=== PATIENT | female | born 1960 | race Caucasian/White ===

== ENCOUNTER 2022-04-20 08:15 | Outpatient (CLI) | payer OTHER, SELFPAY ==
[2022-04-20 09:51] LABS: Chloride* 105 mmol/L (96-114)
[2022-04-20 09:52] LABS: Albumin* 4.1 g/dL (3.3-5.0); Potassium* 4.2 mmol/L (3.6-5.1); Sodium* 140 mmol/L (135-149)
[2022-04-20 09:54] LABS: Carbon Dioxide* 28 mmol/L (20-32); Creatinine* 1.6 mg/dL (0.5-1.5); Estimated Glomerular Filt Rate 37 ml/min
[2022-04-20 09:55] LABS: Blood Urea Nitrogen* 16 mg/dL (7-30); Calcium* 9.6 mg/dL (8.4-10.6); Glucose* 160 mg/dL (60-115); Magnesium* 1.4 mg/dL (1.5-2.6); Phosphorus* 4.1 mg/dL (2.5-4.5)
[2022-04-20 10:16] LABS: Creatinine Urine 66.3 mg/dL
[2022-04-20 11:52] LABS: Microalbumin Creatinine Ratio 4220 mg/g (0-30); Microalbumin Urine 280 mg/dL
== END 2022-04-20 08:16 | disposition home or self-care (01) ==
PROVIDERS: Internal Medicine Nephrology; PCP Internal Medicine; Visit Provider Internal Medicine
DX: E11.9 Type 2 diabetes mellitus without complications (principal); I10 Essential (primary) hypertension; N18.30 Chronic kidney disease, stage 3 unspecified
CPT/HCPCS: 80069; 82043; 82570; 83735; 87086

== ENCOUNTER 2022-06-15 11:36 | Outpatient (CLI) | payer OTHER, SELFPAY ==
--- NOTE | 2022-06-15 11:30 | CRLHL7_ITS ---
For Patients: As a result of the Cures Act, medical imaging exams and procedure reports are released immediately into your electronic medical record. You may view this report before your referring provider. If you have questions, please contact your health care provider. BILATERAL SCREENING MAMMOGRAM WITH COMPUTER-AIDED DETECTION AND TOMOSYNTHESIS TECHNIQUE: CC and MLO views were obtained. These mammographic images have been obtained using full-field digital technique. These mammographic images were interpreted with the benefit of computer-aided detection. Breast Tomosynthesis was used in this interpretation. COMPARISON FILM: 05/21/21, 04/21/20, 03/15/19. FINDINGS: There are scattered areas of fibroglandular density IMPRESSION: There is no radiographic evidence for malignancy. ASSESSMENT: BI-RADS Category 1: Negative RECOMMENDATION: Routine screening mammogram in 1 year. A lay language report of this examination will be provided to the patient. Seb Guy M.D. Diagnostic Radiologist [email or web address] JOSUÉ/irish / be/Dictated by: Seb Guy MD @ 06/16/2022 11:41:00 AM (Electronically Signed)
== END 2022-06-15 11:37 | disposition home or self-care (01) ==
LOC: MAMMO 11:37
PROVIDERS: PCP Internal Medicine; Visit Provider Internal Medicine
DX: Z12.31 Encounter for screening mammogram for malignant neoplasm of breast (principal)
CPT/HCPCS: 77063; 77067

== ENCOUNTER 2022-07-06 09:09 | Outpatient (CLI) | payer OTHER, SELFPAY ==
[2022-07-06 13:50] LABS: Magnesium* 1.6 mg/dL (1.5-2.6)
== END 2022-07-06 09:10 | disposition home or self-care (01) ==
LOC: NFLDREF 10:55
PROVIDERS: PCP Internal Medicine; Visit Provider Internal Medicine
DX: E83.42 Hypomagnesemia (principal)
CPT/HCPCS: 83735

== ENCOUNTER 2022-11-01 08:16 | Outpatient (CLI) | payer OTHER, SELFPAY ==
[2022-11-01 09:31] LABS: Albumin* 4.3 g/dL (3.3-5.0); Chloride* 105 mmol/L (96-114); Sodium* 139 mmol/L (135-149)
[2022-11-01 09:32] LABS: Potassium* 5.1 mmol/L (3.6-5.1)
[2022-11-01 09:33] LABS: Cholesterol* 161 mg/dL (90-199); Creatinine* 1.7 mg/dL (0.5-1.5); Estimated Glomerular Filt Rate 34 ml/min
[2022-11-01 09:34] LABS: Alanine Aminotransferase* 65 U/L (4-35); Alkaline Phosphatase* 73 U/L (40-150); Aspartate Amino Transferase* 56 U/L (12-35); Bilirubin Total* 0.5 mg/dL (0.1-1.5); Blood Urea Nitrogen* 19 mg/dL (7-30); Calcium* 10.1 mg/dL (8.4-10.6); Carbon Dioxide* 24 mmol/L (20-32); Glucose* 178 mg/dL (60-115); Total Protein* 7.1 g/dL (6.0-8.3)
[2022-11-01 09:35] LABS: HDL Cholesterol* 46 mg/dL (>=50); LDL Cholesterol Calculated 24 mg/dL (<100); Magnesium* 1.4 mg/dL (1.5-2.6)
[2022-11-01 09:36] LABS: Triglycerides* 453 mg/dL (40-149)
[2022-11-01 11:07] LABS: Creatinine Urine 72.6 mg/dL; Microalbumin Creatinine Ratio 4880 mg/g (0-30)
[2022-11-01 11:08] LABS: Microalbumin Urine 355 mg/dL
== END 2022-11-01 08:17 | disposition home or self-care (01) ==
PROVIDERS: PCP Internal Medicine; Visit Provider Internal Medicine
DX: E11.9 Type 2 diabetes mellitus without complications (principal); E78.5 Hyperlipidemia, unspecified; I10 Essential (primary) hypertension; N18.30 Chronic kidney disease, stage 3 unspecified; F41.9 Anxiety disorder, unspecified; E83.42 Hypomagnesemia
CPT/HCPCS: 80053; 80061; 82043; 82570; 83735

== ENCOUNTER 2023-05-02 11:15 | Outpatient (CLI) | payer OTHER, SELFPAY | END 2023-05-02 11:16 | disposition home or self-care (01) | LOC: NFLDREF 05-04 10:22 | PROVIDERS: PCP Internal Medicine; Referring Provider Internal Medicine; Visit Provider Internal Medicine | DX: E11.9 Type 2 diabetes mellitus without complications (principal); I10 Essential (primary) hypertension; E78.5 Hyperlipidemia, unspecified; N18.30 Chronic kidney disease, stage 3 unspecified | CPT/HCPCS: 80053; 80061; 82043; 82570; 83735 ==

== ENCOUNTER 2023-07-04 09:32 | Outpatient (CLI) | payer OTHER, SELFPAY ==
--- NOTE | 2023-07-04 10:15 | CRLHL7_ITS ---
For Patients: As a result of the Cures Act, medical imaging exams and procedure reports are released immediately into your electronic medical record. You may view this report before your referring provider. If you have questions, please contact your health care provider. BILATERAL SCREENING MAMMOGRAM WITH COMPUTER-AIDED DETECTION AND TOMOSYNTHESIS TECHNIQUE: CC and MLO views were obtained. These mammographic images have been obtained using full-field digital technique. These mammographic images were interpreted with the benefit of computer-aided detection. Breast tomosynthesis was used in this interpretation. COMPARISON FILM: 06/15/22, 05/21/22, 04/21/20. FINDINGS: There are scattered areas of fibroglandular density. IMPRESSION: There is no radiographic evidence for malignancy. ASSESSMENT: BI-RADS Category 1: Negative RECOMMENDATION: Routine screening mammogram in 1 year. A lay language report of this examination will be provided to the patient. SEB SINGH M.D. Diagnostic Radiologist [email or web address] JOSUÉ/mary Transcribed: 07/04/2023, 3:[address]/Dictated by: Seb Singh MD @ 07/04/2023 11:30:00 AM (Electronically Signed)
== END 2023-07-04 09:33 | disposition home or self-care (01) ==
LOC: MAMMO 09:33
PROVIDERS: PCP Internal Medicine; Visit Provider Internal Medicine
DX: Z12.31 Encounter for screening mammogram for malignant neoplasm of breast (principal)
CPT/HCPCS: 77063; 77067

== ENCOUNTER 2023-12-27 08:36 | Outpatient (CLI) | payer OTHER, SELFPAY ==
--- OUTSIDE RECORDS SUMMARY | 2023-12-28 10:24 | XMS_ITS | Clinical Summary ---
Author Name Unknown Organization [employer] [facility] Address [place], [place] [address] Care Team Providers Care Director Of Online Education Name Role Phone Sierra Castano MD Primary Care Provider [phone] Allergies Active Allergy Reactions Criticality Noted Date Comments Gadodiamide Hives 11/04/2016 Diatrizoate Allergen Hives 06/23/2016 Medications Medication Sig Dispensed Refills Start Date End Date Status esomeprazole (NEXIUM) 40 mg capsule Take 1 capsule by mouth once daily before a meal. 0 06/23/2016 Active FLUoxetine (SARAFEM) 20 mg tablet Take 1 tablet by mouth every morning. 0 06/23/2016 Active traZODone (DESYREL) 100 mg tablet Take 1 tablet by mouth at bedtime. 0 06/23/2016 Active losartan (COZAAR) 25 mg tablet Take 1 tablet by mouth once daily. 0 06/23/2016 Active atenolol (TENORMIN) 25 mg tablet Take 1 tablet by mouth once daily. 0 06/23/2016 Active magnesium oxide (MAG-OX 400) 400 mg tablet Take 400 mg by mouth once daily. Active atorvastatin (LIPITOR) 40 mg tablet Take 40 mg by mouth at bedtime. Active traMADol (ULTRAM) 50 mg tablet Take 50 mg by mouth once daily if needed for Pain. Active multivitamin-mineral s therapeutic tablet Take 1 tablet by mouth once daily. Active acetaminophen (TYLENOL) 325 mg tabletIndications:Pr imary osteoarthritis of right knee Take 1-2 tablets by mouth every 6 hours if needed. Max acetaminophen dose: 4000mg in 24 hrs. 100 tablet 11/09/2016 Active aspirin enteric coated (ECOTRIN) 325 mg tabletIndications:Pr imary osteoarthritis of right knee Take 1 tablet by mouth 2 times daily with meals for 30 days to prevent a clot in your legs 60 tablet 1 11/09/2016 Active sennosides-docusate, 8.6-50 mg, (SENOKOT S) 8.6-50 mg tabletIndications:Pr imary osteoarthritis of right knee Take 1 tablet by mouth 2 times daily if needed for Constipation (Hold for loose stools). 100 tablet 11/09/2016 Active WalkerIndications:Pr imary osteoarthritis of right knee 2 Wheeled Walker for home use. For 6 weeks. 1 Device 11/09/2016 Active oxyCODONE (ROXICODONE) 5 mg immediate release tabletIndications:Pr imary osteoarthritis of right knee Take 1-2 tablets by mouth every 4 hours. 60 tablet 11/10/2016 Active Active Problems Problem Noted Date Diagnosed Date s/p right total knee arthroplasty 11/08/16 017 YVETTE (obstructive sleep apnea) 11/08/2016 Chronic kidney disease, stage III (moderate) 02/2017 Primary osteoarthritis of right knee 06/23/2016 GERD (gastroesophageal reflux disease) Hyperlipidemia Current smoker PVC's (premature ventricular contractions) Overview: atenolol HTN (hypertension) Family History Medical History Relation Name Comments Cancer-prostate Brother Heart Disease Father Heart Disease Mother Lung cancer Sister Relation Name Status Comments Brother Father Mother Sister Social History Tobacco Use Types Packs/Day Years Used Date Smoking Tobacco: Former Cigarettes Q uit: 10/25/2016 Smokeless Tobacco: Never Alcohol Use Standard Drinks/Week Comments No 0 (1 standard drink = 0.6 oz pur e alcohol) Sex and Gender Information Value Date Recorded Sex Assigned at Not on file Gender Identity Not on file Sexual Orientation Not on file Obstetrics History Last Filed Vital Signs Vital Sign Reading Time Taken Comments Blood Pressure 146/77 11/10/2016 8:23 AM SOLDERING MACHINE OPERATOR AUTOMATIC Pulse 61 11/10/2016 8:23 AM SOLDERING MACHINE OPERATOR AUTOMATIC Temperature 37.1 ??C (98.7 ??F) 11/10/2016 12:[address] Respiratory Rate 16 11/10/2016 8:23 AM SOLDERING MACHINE OPERATOR AUTOMATIC Oxygen Saturation 96% 11/10/2016 8:23 AM SOLDERING MACHINE OPERATOR AUTOMATIC Inhaled Oxygen Concentration - - Weight 89.5 kg (197 lb 6.4 oz) 11/08/2016 5:48 A M SOLDERING MACHINE OPERATOR AUTOMATIC Height 162.6 cm (5' 4) 11/08/2016 5:48 AM SOLDERING MACHINE OPERATOR AUTOMATIC Body Mass Index 33.88 11/08/2016 5:48 AM SOLDERING MACHINE OPERATOR AUTOMATIC Plan of Treatment Health Maintenance Due Date Last Done Comments Tdap 1973 Depression screening for age 12+ 1974 HIV for age 15-65 1977 Hepatitis C screening for age 18-79 1980 Tetanus booster 1982 Colonoscopy through age 75 2007 Lipids for age 45-75 2007 Mammogram for age 45-75 2007 Zoster (shingles) series for age 50+ (1 of 2) 2012 BMI (ht and wt on same day) for age 18+ 09/09/2017 09/09/2016, 06/23/2016 COVID-19 vaccine series (2022- season) 2023 Influenza for age 50-64 05/06/2024 Pap test for age 21-65 09/28/2025 , 09/28/2022, 08/27/2021, Additional history exists Pneumococcal series for age 6-64 Aged Out No longer eligible based on patient's age to complete this topic Medical Devices Implanted Type Area Digital Designer Device Identifier Shelf Expiration Date Model / Serial / Lot Patella Sz32 Irma Ii Rnd Penon Pors - [id number] Implanted:Qty: 1 on 11/08/2016 by Niko Ramires MD at [facility] Ortho Total Joint Right: Knee [employer] 06/06/2026 [id number] / / [id number] Cmnt Bone Simplex Atb Tobramycin - [id number] Implanted:Qty: 1 on 11/08/2016 by Niko Ramires MD at [facility] Right: Knee [employer] 04/04/2018 [id number] # / / [id number] Cmnt Bone Simplex Atb Tobramycin - [id number] Implanted:Qty: 1 on 11/08/2016 by Niko Ramires MD at [facility] Right: Knee [employer] 03/04/2018 [id number] # / / [id number] Fem Rt Sz4 [employer] St[employer] Oxin - [id number] Implanted:Qty: 1 on 11/08/2016 by Niko Ramires MD at [facility] Right: Knee [employer] 03/02/2025 [id number] / / [id number] Baseplate Tib Rt Sz2 Irma Ii Titnm Non Pors - [id number] Implanted:Qty: 1 on 11/08/2016 by Niko Ramires MD at [facility] Right: Knee [employer] 09/12/2026 [id number] / / [id number] Insert Knee Sz1-2 12mm [employer] St[employer] High Flex Xlpe - [id number] Implanted:Qty: 1 on 11/08/2016 by Niko Ramires MD at [facility] Right: Knee [employer] 04/25/2026 [id number]# / / [id number] Explanted Type Area Digital Designer Device Identifier Shelf Expiration Date Model / Serial / Lot Guide Cutg Rt Legion Fem Tib - [id number] Explanted:Qty: 1 on 11/08/2016 by Niko Ramires MD at [facility] Right: Knee [employer] 01/23/2017 [id number] / / [id number] Procedures Procedure Name Priority Date/Time Associated Diagnosis Comments HPV THIN PREP Routine 09/28/2022 12:00 PM SOLDERING MACHINE OPERATOR AUTOMATIC from Last 3 Months or Most Recently Relevant to Health Maintenance Results * HPV HIGH RISK (09/28/2022 12:00 PM SOLDERING MACHINE OPERATOR AUTOMATIC) TYPE 16 Negative Negative 10/01/2022 10:51 AM SOLDERING MACHINE OPERATOR AUTOMATIC [facility] TYPE 18 Negative Negative 10/01/2022 10:51 AM SOLDERING MACHINE OPERATOR AUTOMATIC [facility] OTHER HIGH RISK TYPES Negative Negative 10/01/2022 10:51 AM [facility] Other (Cervical/Vagina l) 09/28/2022 12:00 PM SOLDERING MACHINE OPERATOR AUTOMATIC 09/29/2022 1:49 PM SOLDERING MACHINE OPERATOR AUTOMATIC [facility] - 10/01/2022 10:51 AM SOLDERING MACHINE OPERATOR AUTOMATIC HPV types 16, 18, 31, 33, 35, 39, 45, 51, 52, 56, 58, 59, 66 and 68 DNA were undetectable or below the pre-set threshold. Methodology: Stylewhileas 4800 HPV Test Jenifer Meggan Hernberg MD MICROBIOLOGY [facility] [address] [place] [address], from Last 3 Months or Most Recently Relevant to Health Maintenance Advance Directives * Full Code (Latest Code Status on File) Date Activated Date Inactivated Comments 11/08/2016 8:57 AM 11/10/2016 12:59 PM * Full Code Date Activated Date Inactivated Comments 11/08/2016 2:01 AM 11/08/2016 8:57 AM Care Teams Director Of Online Education Relationship Specialty Start Date End Date Sierra Castano MD [address] [place] [address] PCP - General Internal Medicine 06/17/16
== END 2023-12-27 08:37 | disposition home or self-care (01) ==
LOC: NFLDREF 12-28 10:22
PROVIDERS: PCP Internal Medicine; Referring Provider Internal Medicine; Visit Provider Internal Medicine
DX: E11.9 Type 2 diabetes mellitus without complications (principal); E78.5 Hyperlipidemia, unspecified; I10 Essential (primary) hypertension; Z79.84 Long term (current) use of oral hypoglycemic drugs
CPT/HCPCS: 80053; 80061

== ENCOUNTER 2024-05-15 08:18 | Outpatient (CLI) | payer OTHER, SELFPAY | END 2024-05-15 08:19 | disposition home or self-care (01) | LOC: NFLDREF 15:48 | PROVIDERS: PCP Internal Medicine; Referring Provider Internal Medicine; Visit Provider Internal Medicine Nephrology | DX: R74.8 Abnormal levels of other serum enzymes (principal); I12.9 Hypertensive chronic kidney disease with stage 1 through stage 4 chronic kidney disease, or unspecified chronic kidney disease; N18.30 Chronic kidney disease, stage 3 unspecified; E78.5 Hyperlipidemia, unspecified; E83.42 Hypomagnesemia | CPT/HCPCS: 80069; 82043; 82570; 83540; 83550; 84550 ==

== ENCOUNTER 2024-07-05 07:47 | Outpatient (CLI) | payer OTHER, SELFPAY ==
--- OUTSIDE RECORDS SUMMARY | 2024-07-05 08:19 | XMS_ITS ---
Author Organization [facility] Address [address] [place] [address] Care Team Providers Care Column Precaster Name Role Phone Unavailable Unavailable Unavailable Surgery Details Not on file Complications Check Surgery Details section. Procedure Estimated Blood Loss Check Surgery Details section. Procedure Findings Check Surgery Details section. Procedure Specimens Taken Check Surgery Details section.
--- OUTSIDE RECORDS SUMMARY | 2024-07-05 08:19 | XMS_ITS | Encounter Summary ---
Author Organization [facility] Address [address] [place] [id number] Care Team Providers Care Vice President Of Development Name Role Phone Unavailable Primary Care Provider Unavailabl e Reason for Visit * Appointment Request (Routine) - Closed Specialty Diagnoses / Procedures Referred By Geovanny encarnacion Referred To Contact Nephrology and Hypertension Referral ID Status Reason Start Date Expiration Date Visits Re quested Visits Authorized [id number] Closed 04/26/2024 04/26/2025 1 1 Encounter Details Date Type Department Care Team (Latest Contact Info) Description 05/21/2024 2:30 PM CDT External Outreach Division of Nephrology and Hypertension in [place], [place] [address] [place] [phone] Fred Muñoz Jr., D.O. [address] [place] [phone] Chronic Kidney Disease (CKD), Stage 3a Glomerular Filtration Rate (GFR) 45 To 59 (HCC) (Primary Dx); Hypertensive Chronic Kidney Disease With Stage 1 Through Stage 4 Chronic Kidney Disease, Or Unspecified Chronic Kidney Disease; Diabetes Mellitus Type 2 (HCC) Social History Tobacco Use Types Packs/Day Years Used Date Smoking Tobacco: Never Assessed Nutrition Answer Date Recorded Nutrition: EVOO Fat Source 13 05/20 Nutrition: Servings of Fruits/Vegetables per Day Not on file 05/20/2020 Dental Answer Date Recorded Dental: Regular Dentist Unknown 08/27/20 21 Comments Unknown Sex and Gender Information Value Date Recorded Sex Assigned at Not on file Legal Sex Female 11:58 AM GATE SHEAR OPERATOR Gender Identity Not on file Sexual Orientation Not on file documented as of this encounter Last Filed Vital Signs Vital Sign Reading Time Taken Comments Blood Pressure 128/82 05/21/2024 3:14 PM CDT Pulse 66 05/21/2024 3:14 PM CDT Temperature - - Respiratory Rate - - Oxygen Saturation - - Inhaled Oxygen Concentration - - Weight 76.7 kg (169 lb) 05/21/2024 3:14 PM CDT Height 165.1 cm (5' 5) 05/21/2024 3:14 PM CDT Body Mass Index 28.12 05/21/2024 3:14 PM CDT documented in this encounter Progress Notes * Fred Muñoz Jr., D.O. - 05/21/2024 2:30 PM CDT Referring Provider:DR Armstrong SUBJECTIVE REASON FOR VISIT [facility] Follow-up regards CKD HISTORY OF PRESENT ILLNESS Ms. Lyon is a 64 y.o. female who presents with CKD on the background of hypertension diabetes mellitus. She has done a terrific job with weight loss, and has been initiated on Ozempic as well as following through with empagliflozin. Her hemoglobin A1c is still slightly above target at 7.9%, but overallshe is doing well feeling well and exercising on a regular basis. She has been free of orthopedic issues recently other than some left hip pain which she notes when she exercises on the treadmill. She is experiencing some orthostatic changes when she stands, and I note that she is on 2.5 mg of amlodipine which we will stop. She has additionally troubled by tachycardia episodes. These are quite troublesome, primarily so inthe evenings when she is lying on her left side. She is wearing a mobile monitoring device currently. She has had no syncope, no chest pain, no shortness of breath and no other constitutional complaints. Overall she is doing quite well. 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 No past medical history on file. Current Outpatient Medications: atenoloL (Tenormin) 25 mg tablet, Take 2 tablets by mouth 2 (two) times a day Indications: high blood pressure., Disp: , Rfl: esomeprazole (NexIUM) [address] capsule, Take 1 capsule by mouth daily., Disp: , Rfl: FLUoxetine (PROzac) 20 mg tablet, Take 1 tablet by mouth every morning., Disp: , Rfl: losartan (Cozaar) 25 mg tablet, Take 1 tablet by mouth 2 (two) times a day., Disp: , Rfl: atorvastatin (Lipitor) 40 mg tablet, Take 40 mg by mouth at bedtime., Disp: , Rfl: empagliflozin (Jardiance) 10 mg tablet, Take 1 tablet (10 mg total) by mouth daily before morning meal., Disp: , Rfl: metFORMIN (Fortamet) 1,000 mg 24 hr tablet, Take 1 tablet (1,000 mg total) by mouth daily with morning meal., Disp: , Rfl: semaglutide (Ozempic) 1 mg/dose (4 mg/3 mL) injection, Inject 1 mg under the skin every 7 (seven) days., Disp: , Rfl: traMADoL (Ultram) 50 mg tablet, Take 50 mg by mouth at bedtime as needed., Disp: , Rfl: REVIEW OF SYSTEMS All other systems reviewed and are negative. OBJECTIVE BP 128/82 Pulse 66 Ht 165.1 cm Wt 76.7 kg BMI 28.12 kg/m?? PHYSICAL EXAMINATION General: Awake, alert, oriented. HEENT: VANESSA, EOMI, mucous membranes moist, no oral lesions. Neck: No masses, no bruits. Lungs: Clear to auscultation. Heart: Regular rate and rhythm. No ectopy, murmurs, or rubs. Abdomen: Soft, non-tender. Extremities: No cyanosis, no clubbing, no edema. Neuro: Cranial nerves intact. Gait is normal, strength grossly normal. Skin: No suspicious lesions identified. Psychiatric: Normal affect. DIAGNOSTICS Note hemoglobin A1c 7.9%, normal serum creatinine level, normal CBC. ASSESSMENT / PLAN #1 Chronic Kidney Disease (CKD), Stage 3a Glomerular Filtration Rate (GFR) 45 To 59 ([facility]) Doing quite well, her renal function has gratifyingly improved, she does have glycosuria, as expected with her SG LT 2 inhibitor. I congratulated her on weight loss and excellent blood pressure control. Going forward: 1. I will see her back in a year 2. She will continue on her current regimen with the goal glycosylated hemoglobin between 6.5 and 7.5% 3. Goal blood pressures less than 130s systolic, but above 110 systolic. We will stop her amlodipine 4. No NSAIDs or Sanchez 2 inhibitors 5. Stay well hydrated #2 Hypertensive Chronic Kidney Disease With Stage 1 Through Stage 4 Chronic Kidney Disease, Or Unspecified Chronic Kidney Disease Her blood pressures have been achieved in fact she is having some orthostatic changes, and along with her tachycardia it is best if we stop her amlodipine currently. She will continue to avoid sodium, NSAIDs, continue on her enhanced dose of beta blockade. We are watching the results of her mobile nurse monitoring. #3 Diabetes Mellitus Type 2 (HCC) She relates that she could do better with her diet, and we will read devoted herself to her dietaryattention. She is on an extensive regimen including metformin, GLP 1 agonist him, and SG LT 2 antagonism. Total time: 30 minutes Counseling Time: 20 minutes Fred Muñoz Jr., D.O. documented in this encounter Plan of Treatment Not on file documented as of this encounter Visit Diagnoses Diagnosis Chronic Kidney Disease (CKD), Stage 3a Glomerular Filtration Rate (GFR) 45 To 59 (HCC)- Primary Hypertensive Chronic Kidney Disease With Stage 1 Through Stage 4 Chronic Kidney Disease, Or Unspecified Chronic Kidney Disease Diabetes Mellitus Type 2 (HCC) documented in this encounter
--- OUTSIDE RECORDS SUMMARY | 2024-07-05 08:19 | XMS_ITS | Clinical Summary ---
Author Organization [employer] [facility] [employer] [facility] Address [place], [place] [address] Care Team Providers Care Mine Engineering Supervisor Name Role Phone Sierra Castano MD Primary Care Provider [phone] Allergies Active Allergy Reactions Criticality Noted Date [...] Hyperlipidemia Current smoker PVC's (premature ventricular contractions) Overview (11/08/2016): atenolol HTN (hypertension) Encounters Date Type Department Care Team Description 05/15/2024 Orders Only [facility] [address] [place] [address] Sierra Castano MD 1 scan: (1-Ord) ZIO REPORT from Last 3 Months Family History Medical History Relation Name Comments [...] Comments Blood Pressure 146/77 11/10/2016 8:23 AM ALTITUDE CHAMBER TECHNICIAN Pulse 61 11/10/2016 8:23 AM ALTITUDE CHAMBER TECHNICIAN Temperature 37.1 ??C (98.7 ??F) 11/10/2016 12:[address] Respiratory Rate 16 11/10/2016 8:23 AM ALTITUDE CHAMBER TECHNICIAN Oxygen Saturation 96% 11/10/2016 8:23 AM ALTITUDE CHAMBER TECHNICIAN Inhaled Oxygen Concentration - - Weight 89.5 kg (197 lb 6.4 oz) 11/08/2016 5:48 A M ALTITUDE CHAMBER TECHNICIAN Height 162.6 cm (5' 4) 11/08/2016 5:48 AM ALTITUDE CHAMBER TECHNICIAN Body Mass Index 33.88 11/08/2016 5:48 AM ALTITUDE CHAMBER TECHNICIAN Plan of Treatment Health Maintenance Due Date [...] 18+ 09/09/2017 09/09/2016, 06/23/2016 COVID-19 vaccine series (2023- season) 2024 Influenza for age 50-64 05/06/2024 Pap test for age 21-65 09/28/2025 3, 09/28/2022, 08/27/2021, Additional history exists Pneumococcal series for age 6-64 Aged Out No longer eligible based on patient's age to complete this topic Medical Devices Implanted Type Area Foam Rubber Mixer Device Identifier Shelf Expiration Date Model / Serial / Lot Patella Sz32 Irma Ii Rnd [facility] Pors - [id number] Implanted:Qty: 1 on 11/08/2016 by Niko Ramires MD at [facility] Total Joint Right: Knee [employer] 06/06/2026 [id number] / / [id number] Cmnt Bone Simplex Atb Tobramycin - [id number] Implanted:Qty: 1 on 11/08/2016 by Niko Ramires MD at [facility] [place] Right: Knee [employer] 04/04/2018 [id number] # / / [id number] Cmnt Bone Simplex Atb Tobramycin - [id number] Implanted:Qty: 1 on 11/08/2016 by Niko Ramires MD at [facility] [place] Right: Knee [facility] 03/04/2018 [id number] # / / [id number] Fem Rt Sz4 [employer] Oxin - [id number] Implanted:Qty: 1 on 11/08/2016 by Niko Ramires MD at [facility] [place] Right: Knee [employer] 03/02/2025 [id number] / / [id number] Baseplate Tib Rt Sz2 Irma Ii Titnm Non Pors - [id number] Implanted:Qty: 1 on 11/08/2016 by Niko Ramires MD at [facility] [place] Right: Knee [employer] 09/12/2026 [id number]# / / [id number] Insert Knee Sz1-2 12mm [employer] High Flex Xlpe - [id number] Implanted:Qty: 1 on 11/08/2016 by Niko Ramires MD at [facility] [place] Right: Knee [employer] 04/25/2026 [id number]# / / [id number] Explanted Type Area Foam Rubber Mixer Device Identifier Shelf Expiration Date Model / Serial / Lot Guide Cutg Rt [employer] Fem Tib - [id number] Explanted:Qty: 1 on 11/08/2016 by Niko Ramires MD at [facility] [place] Right: Knee [employer] 01/23/2017 [id number] / / [id number] Procedures Procedure Name Priority Date/Time Associated Diagnosis Comments EXTENDED HOLTER Routine 05/28/2024 Palpitations HPV HIGH RISK Routine 09/28/2022 12:00 PM ALTITUDE CHAMBER TECHNICIAN from Last 3 Months or Most Recently Relevant to Health Maintenance Results * EXTENDED HOLTER (05/28/2024) Sierra Castano MD [facility] [address] * HPV HIGH RISK (09/28/2022 12:00 PM ALTITUDE CHAMBER TECHNICIAN) TYPE 16 Negative Negative 10/01/2022 10:51 AM ALTITUDE CHAMBER TECHNICIAN [facility] TYPE 18 Negative Negative 10/01/2022 10:51 AM ALTITUDE CHAMBER TECHNICIAN [facility] OTHER HIGH RISK TYPES Negative Negative 10/01/2022 10:51 AM ALTITUDE CHAMBER TECHNICIAN [facility] Other (Cervical/Vagina l) 09/28/2022 12:00 PM ALTITUDE CHAMBER TECHNICIAN 09/29/2022 1:49 PM ALTITUDE CHAMBER TECHNICIAN [facility]ative [facility] 10/01/2022 10:51 AM ALTITUDE CHAMBER TECHNICIAN HPV types 16, 18, 31, 33, 35, 39, 45, 51, 52, 56, 58, 59, 66 and 68 DNA were undetectable or below the pre-set threshold. Methodology: [employer] 4800 HPV Test Jenifer Galvez MD MICROBIOLOGY [facility] [address] [place] [address], from Last 3 Months or Most Recently Relevant to Health Maintenance Advance Directives * Full Code (Latest Code Status on File) Date Activated Date Inactivated Comments 11/08/2016 8:57 AM 11/10/2016 12:59 PM * Full Code Date Activated Date Inactivated Comments 11/08/2016 2:01 AM 11/08/2016 8:57 AM Care Teams Mine Engineering Supervisor Relationship Specialty Start Date End Date Sierra Castano MD [address] [place] [address] PCP - General Internal Medicine 06/17/16
--- OUTSIDE RECORDS SUMMARY | 2024-07-05 08:19 | XMS_ITS | Referral Summary ---
Author Organization [facility] Address [address] [place] [address] Care Team Providers Care Emergency Doctor Name Role Phone Unavailable Primary Care Provider Unavailabl e Source Comments Patient records contain information from all sites at [facility]. For routine questions regarding patient records, call [phone] during business hours, M-F 8:00 AM - 5:00 PM Central Time. Record requests for emergency care only can be directed to [phone] at any time.[facility] Encounters Date Type Department Care Team Description 05/21/2024 2:30 PM CDT External Outreach Division of Nephrology and Hypertension in [place], [place] [address] [place] [address] Fred Muñoz Jr., D.O. Chronic Kidney Disease (CKD), Stage 3a Glomerular Filtration Rate (GFR) 45 To 59 (HCC) (Primary Dx); Hypertensive Chronic Kidney Disease With Stage 1 Through Stage 4 Chronic Kidney Disease, Or Unspecified Chronic Kidney Disease; Diabetes Mellitus Type 2 (HCC) from Last 3 Months Medications atenoloL (Tenormin) 25 mg tabletIndicatio ns:hypertension Take 2 tablets by mouth 2 (two) times a day Indications: high blood pressure. 06/23/2016 Active atorvastatin (Lipitor) 40 mg tablet Take 40 mg by mouth at bedtime. Active esomeprazole (NexIUM) [address] capsule Take 1 capsule by mouth daily. 11/10/2011 Active FLUoxetine (PROzac) 20 mg tablet Take 1 tablet by mouth every morning. 06/23/2016 Active losartan (Cozaar) 25 mg tablet Take 1 tablet by mouth 2 (two) times a day. 11/10/2011 Active traMADoL (Ultram) 50 mg tablet Take 50 mg by mouth at bedtime as needed. Active empagliflozin (Jardiance) 10 mg tablet Take 1 tablet (10 mg total) by mouth daily before morning meal. 05/21/2024 Active semaglutide (Ozempic) 1 mg/dose (4 mg/3 mL) injection Inject 1 mg under the skin every 7 (seven) days. 05/21/2024 Active metFORMIN (Fortamet) 1,000 mg 24 hr tablet Take 1 tablet (1,000 mg total) by mouth daily with morning meal. 05/21/2024 Active Active Problems Problem Noted Date Diagnosed Date Diabetes Mellitus Type 2 09/15/2021 Hypercalcemia 09/15/2021 Chronic Kidney Disease (CKD) , Stage 3a Glomerular Filtration Rate (GFR) 45 To 59 02/19/2016 Hypertensive Chronic Kidney Disease With Stage 1 Through Stage 4 Chronic Kidney Disease, Or Unspecified Chronic Kidney Disease 11/10/2011 Hyperlipidemia 11/10/2011 Social History Tobacco Use Types Packs/Day Years Used Date Smoking Tobacco: Never Assessed Nutrition Answer Date Recorded Nutrition: EVOO Fat Source 13 05/20 Nutrition: Servings of Fruits/Vegetables per Day Not on file 05/20/2020 Dental Answer Date Recorded Dental: Regular Dentist Unknown 08/27/20 21 Comments Unknown Sex and Gender Information Value Date Recorded Sex Assigned at Not on file 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 Oxygen Saturation - - Inhaled Oxygen Concentration - - Weight 76.7 kg (169 lb) 05/21/2024 3:14 PM CDT Height 165.1 cm (5' 5) 05/21/2024 3:14 PM CDT Body Mass Index 28.12 05/21/2024 3:14 PM CDT Plan of Treatment [place] [phone] [facility]
--- OUTSIDE RECORDS SUMMARY | 2024-07-05 08:19 | XMS_ITS | Clinical Summary ---
Author Organization [facility] Address [address] [place] [address] Care Team Providers Care Imaging Technician Name Role Phone Unavailable Primary Care Provider Unavailabl e Source Comments Patient records contain information from all sites at [facility]. For routine questions regarding patient records, call [phone] during business hours, M-F 8:00 AM - 5:00 PM Central Time. Record requests for emergency care only can be directed to [phone] at any time.[facility] Medications atenoloL (Tenormin) 25 mg tabletIndicatio ns:hypertension [...] by mouth daily with morning meal. 05/21/2024 5 Active Active Problems Problem Noted Date Diagnosed Date Diabetes Mellitus Type 2 09/15/2021 Hypercalcemia 09/15/2021 Chronic Kidney Disease (CKD) , Stage 3a Glomerular Filtration Rate (GFR) 45 To 59 02/19/2016 Hypertensive Chronic Kidney Disease With Stage 1 Through Stage 4 Chronic Kidney Disease, Or Unspecified Chronic Kidney Disease 11/10/2011 Hyperlipidemia 11/10/2011 Encounters Date Type Department Care Team Description 05/21/2024 2:30 PM CDT External Outreach Division of Nephrology and Hypertension in [place], [place] [address] [place] [address] Fred Muñoz Jr., D.O. Chronic Kidney Disease (CKD), Stage 3a Glomerular Filtration Rate (GFR) 45 To 59 (HCC) (Primary Dx); Hypertensive Chronic Kidney Disease With Stage 1 Through Stage 4 Chronic Kidney Disease, Or Unspecified Chronic Kidney Disease; Diabetes Mellitus Type 2 (HCC) from Last 3 Months Social History Tobacco Use Types Packs/Day Years Used Date Smoking Tobacco: Never Assessed Nutrition Answer Date Recorded Nutrition: EVOO Fat Source 13 05/20 Nutrition: Servings of Fruits/Vegetables per Day Not on file 05/20/2020 Dental Answer Date Recorded Dental: Regular Dentist Unknown 08/27/20 21 Comments Unknown Sex and Gender Information Value Date Recorded Sex Assigned at Not on file 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 Gender Identity Not on file Sexual Orientation [...] 05/21/2024 3:14 PM CDT Plan of Treatment Health Maintenance Due Date Last Done Comments CT Colonography 1962 Cologuard 1962 Colonoscopy 1962 Colorectal Cancer Screening 1962 Creatinine Level (Kidney Function Test) 1962 Diabetic Office Visit with Foot Exam 1962 Dilated Eye Exam 1962 FIT 1962 HIV Screening 1962 Hemoglobin A1C 1962 Hepatitis C Screening 1962 Lipid (Cholesterol) Screening 1962 Mammogram 1962 Potassium Level 1962 Sodium Level 1962 Urine Albumin 1962 Pneumococcal vaccine (0-64 years) (2 of 2 - PCV) 12/01/2019 11/30/2018 Hepatitis B Vaccines (1 of 3 - Risk 3-dose series) 2022 Depression Screening (Annual PHQ-2) 09/05/2023 COVID-19 Vaccine ( season) 2024 06/03/2021, 09/16/2020, 08/27/2020 Influenza Vaccine (#1) 2024 , 06/11/2022, 06/03/2021, Additional history exists Office Visit for Blood Pressure Check / Re-check 05/21/2025 05/21/2024 Cervical/Vaginal Cancer Screening 09/28/2025 09/28/2022, 08/27/2021 DTaP,Tdap,and Td Vaccines (3 - Td or Tdap) 12/22/2030 12/22/2020, 11/04/2010, 05/26/2006, Additional history exists Zoster Vaccines Completed 12/22/2020, 06/06, 04/01/2020 IPV Vaccines Aged Out No longer eligi ble based on patient's age to complete this topic Insurance [employer]
== END 2024-07-05 07:48 | disposition home or self-care (01) ==
LOC: NFLDREF 08:16
PROVIDERS: PCP Internal Medicine; Referring Provider Internal Medicine; Visit Provider Internal Medicine
DX: E11.9 Type 2 diabetes mellitus without complications (principal); E83.42 Hypomagnesemia; E78.5 Hyperlipidemia, unspecified
CPT/HCPCS: 80053; 80061; 82043; 82570; 83735

== ENCOUNTER 2024-07-05 08:09 | Outpatient (CLI) | payer OTHER, SELFPAY ==
--- NOTE | 2024-07-05 08:15 | CRLHL7_ITS ---
For Patients: As a result of the Century Cures Act, medical imaging exams and procedure reports are released immediately into your electronic medical record. You may view this report before your referring provider. If you have questions, please contact your health care provider. BILATERAL SCREENING MAMMOGRAM WITH COMPUTER-AIDED DETECTION AND TOMOSYNTHESIS TECHNIQUE: CC and MLO views were obtained. These mammographic images have been obtained using full-field digital technique. These mammographic images were interpreted with the benefit of computer-aided detection. Breast Tomosynthesis was used in this interpretation. COMPARISON FILM: 07/04/23, 06/15/22, 05/21/21. FINDINGS: There are scattered areas of fibroglandular density. IMPRESSION: There is no radiographic evidence for malignancy. ASSESSMENT: BI-RADS Category 1: Negative RECOMMENDATION: Routine screening mammogram in 1 year. A lay language report of this examination will be provided to the patient. Seb Guy M.D. Diagnostic Radiologist [email or web address] SP/Dictated by: Seb Guy MD @ 07/05/2024 10:43:00 AM (Electronically Signed)
== END 2024-07-05 08:10 | disposition home or self-care (01) ==
LOC: MAMMO 08:10
PROVIDERS: PCP Internal Medicine; Visit Provider Internal Medicine
DX: Z12.31 Encounter for screening mammogram for malignant neoplasm of breast (principal)
CPT/HCPCS: 77063; 77067

== ENCOUNTER 2024-08-13 09:20 | Outpatient (CLI) | payer OTHER, SELFPAY ==
--- NOTE | 2024-08-13 10:29 | W.ANESCHARGE ---
Anesthesia Charges Start Date/Time Anesthesia Start Date: 08/13/24 Anesthesia Start Time: 10:01 Stop Date/Time Anesthesia Stop Date: 08/13/24 Anesthesia Stop Time: 10:27
--- NOTE | 2024-08-13 10:56 | W.ANESCHARGE ---
Anesthesia Charges Start Date/Time Anesthesia Start Date: 08/13/24 Anesthesia Start Time: 10:01 Stop Date/Time Anesthesia Stop Date: 08/13/24 Anesthesia Stop Time: 10:27
== END 2024-08-13 09:21 | disposition home or self-care (01) ==
LOC: OP CLINIC 09:20
PROVIDERS: PCP Internal Medicine; Visit Provider Surgery
DX: Z12.11 Encounter for screening for malignant neoplasm of colon (principal); D12.3 Benign neoplasm of transverse colon; K64.8 Other hemorrhoids; K57.30 Diverticulosis of large intestine without perforation or abscess without bleeding; Z86.0100 Personal history of colon polyps, unspecified
CPT/HCPCS: 00811; 45385; 88305; J2704

== ENCOUNTER 2025-07-29 07:57 | Outpatient (CLI) | payer OTHER, SELFPAY ==
--- NOTE | 2025-07-29 08:15 | CRLHL7_ITS ---
For Patients: As a result of the Century Cures Act, medical imaging exams and procedure reports are released immediately into your electronic medical record. You may view this report before your referring provider. If you have questions, please contact your health care provider. INDICATION: BILATERAL SCREENING MAMMOGRAM, ASYMPTOMATIC 65 Y/O FEMALE COMPARISON: 07/05/2024, 07/04/2023, 06/15/2022 TECHNIQUE: Digital mammogram in CC and MLO projections including computer-aided detection (CAD) and tomosynthesis. BREAST COMPOSITION: There are scattered areas of fibroglandular density. FINDINGS: No suspicious findings. ASSESSMENT: BI-RADS 1 Negative RECOMMENDATION: Annual screening mammogram. A lay language report of this examination will be provided to the patient. Dictated by: Denise Starkey MD @ 07/30/2025 09:14:29 (Electronically Signed)
== END 2025-07-29 07:58 | disposition home or self-care (01) ==
LOC: MAMMO 07:57
PROVIDERS: PCP Internal Medicine; Visit Provider Internal Medicine
DX: Z12.31 Encounter for screening mammogram for malignant neoplasm of breast (principal)
CPT/HCPCS: 77063; 77067

== ENCOUNTER 2025-08-12 07:55 | Outpatient (CLI) | payer OTHER, SELFPAY | END 2025-08-12 07:56 | disposition home or self-care (01) | LOC: NFLDREF 15:53 | PROVIDERS: PCP Internal Medicine; Referring Provider Internal Medicine; Visit Provider Internal Medicine | DX: E11.65 Type 2 diabetes mellitus with hyperglycemia (principal); E83.42 Hypomagnesemia | CPT/HCPCS: 80053; 80061; 82043; 82570; 83735 ==